=== PATIENT | male | born 1985 | race Caucasian/White ===

== ENCOUNTER 2016-05-10 13:10 | Emergency (ER) | payer BC ==
[2016-05-10] MEDS ORDERED: LORazepam INJ* 2 MG/ML 1 ML VIAL IV ONE (13:28)
[2016-05-10] MEDS: NS 0.9% 1000 ML* 2,000 ML IV ONE (13:34)
[2016-05-10 13:43] LABS: Hematocrit 42 % (42-52); Mean Corpuscular HGB Conc 34 g/dl (31-36); Mean Corpuscular Hemoglobin 30 pg (27-31); Mean Corpuscular Volume 88 fL (80-94); Mean Platelet Volume 10 um3 (7.4-10.4); Red Blood Count 4.75 10^6/ul (4.0-5.4); Red Cell Distribution Width 13 % (10.5-15); White Blood Count 4.8 10^3/ul (3.5-10.8)
--- NOTE | 2016-05-10 14:02 | RAD ---
Indication: Retro-orbital headache. Comparison: None. Technique: Noncontrast CT vertex of skull through foramen magnum. Report: The sulci, ventricles, and basal cisterns are normal for age. Godfrey matter white matter differentiation is preserved without evidence for edema. No intra or extra axial hemorrhage, mass, or fluid collection detected. Unremarkable orbital contents. Unremarkable calvarium and skull base. Unremarkable scalp. The visualized paranasal sinuses and mastoid air spaces are clear. IMPRESSION: Negative unenhanced head CT.
[2016-05-10 14:04] LABS: ALT 21 U/L (7-52); AST 20 U/L (13-39); Albumin 4.2 g/dL (3.2-5.2); Alkaline Phosphatase 63 U/L (34-104); Anion Gap 5 mmol/L (2-11); BUN/Creatinine Ratio 12.9 (8-20); Blood Urea Nitrogen 11 mg/dL (6-24); C Reactive Protein 1.47 mg/L (< 5.00); CO2 Carbon Dioxide 26 mmol/L (22-32); Calcium 9.2 mg/dL (8.6-10.3); Chloride 106 mmol/L (101-111); Creatine Kinase 84 U/L (10-223); EGFR African American 133.5 (>60); EGFR Non-African American 103.8 (>60); Globulin 2.8 g/dL (2-4); Glucose 105 mg/dL (70-100); Lipase < 10 U/L (11.0-82.0); Magnesium 2.2 mg/dL (1.9-2.7); Potassium 4.1 mmol/L (3.5-5.0); Sodium 137 mmol/L (133-145)
--- NOTE | 2016-05-10 14:10 | RAD ---
HISTORY: Left chest pain COMPARISONS: July 01, 2012 VIEWS:1: Single frontal portable view of the chest at 1:53 PM FINDINGS: LINES AND TUBES: None. CARDIOMEDIASTINAL SILHOUETTE: The cardiomediastinal silhouette is normal for portable technique. PLEURA: The costophrenic angles are sharp. No pleural abnormalities are noted. LUNG PARENCHYMA: The lungs are clear. ABDOMEN: The upper abdomen is clear. There is no subphrenic gas. BONES AND SOFT TISSUES: No bone or soft tissue abnormalities are noted. IMPRESSION: NO ACTIVE CARDIOPULMONARY DISEASE.
[2016-05-10 14:33] LABS: Urine Bilirubin Negative (Negative); Urine Glucose Negative (Negative); Urine Nitrite Negative (Negative)
[2016-05-10 14:44] LABS: TSH (Thyroid Stimulating Horm) 0.68 mcIU/mL (0.34-5.60)
--- NOTE | 2016-05-10 15:35 | ED ---
Chay Mora Aidan, scribed for Luis Lundberg MD on 05/10/16 at 1359 . Allergic Reaction/Systemic - HPI Summary HPI Summary: 31 y/o male presents to the ED via transfer from [facility] with a complaint of a possible allergic reaction to a new medication. At roughly 0830 this morning, the patient took a new medication for his bipolar disorder. At 1015, he took another new medication called Indomethacin to treat his chronic knee pain. At 1100, his symptoms began with a severe MARRERO behind the eyes and fatigue. He then developed a heavy chest pressure described as the sensation of someone sitting on his chest. He has only felt a similar chest pressure when having panic attacks. Associated symptoms include mild photophobia, some blurred vision, and episodes of mild dizziness. Currently, the patient feels fatigued and has a MARRERO. - History of Current Complaint Chief Complaint: EDAllergicReaction Time Seen by Provider: 05/10/16 13:19 Hx Obtained From: Patient Onset/Duration: Sudden Onset, Started hours ago, Still Present - MARRERO, photophobia , and fatigue still present Timing: Intermittent - episode of chest pressure, intermittent episodes of MARRERO, Lasting Hours Severity Initially: Moderate Severity Currently: Moderate - Pt currently has a moderate MARRERO Location: Discrete @ - heavy chest pressure, MARRERO above the eyes Aggravating Factor(s): Other - Possibly perscribed medication for bipolar disorder or perscribed medication for knee pain (Indomethacin) Alleviating Factor(s): Other - unknown Associated Signs And Symptoms: Positive: Chest Pain - chest "pressure", Lightheadedness - episodes of "dizziness", Other: - fatigue, photophobia, MARRERO, some blurred vision - Related Hx Possible Reaction To: Medications - Allergies/Home Medications Allergies/Adverse Reactions: Allergies Allergy/AdvReac Type Severity Reaction Status Date / Time No Known Allergies Allergy Verified 01/14/16 09:56 PMH/Surg Hx/FS Hx/Imm Hx Endocrine/Hematology History: Denies: Hx Diabetes, Hx Thyroid Disease Cardiovascular History: Denies: Hx Congestive Heart Failure, Hx Deep Vein Thrombosis, Hx Hypertension , Hx Myocardial Infarction, Hx Pacemaker/ICD Respiratory History: Denies: Hx Asthma, Hx Chronic Obstructive Pulmonary Disease (COPD), Hx Lung Cancer, Hx Pneumonia, Hx Pulmonary Embolism GI History: Reports: Hx Irritable Bowel - CHRONIC, RELATES IT TO ANXIETY, NO MEDS Denies: Hx Gall Bladder Disease, Hx Gastrointestinal Bleed, Hx Ulcer, Hx Urosepsis History: Reports: Other Problems/Disorders - 2007 RIGHT ORCHIECTOMY R/T CA Denies: Hx Kidney Stones, Hx Renal Disease Musculoskeletal History: Reports: Hx Arthritis - CHRONIC INFLAMMATORY ARTHRITIS Sensory History: Denies: Hx Contacts or Glasses, Hx Hearing Aid Opthamlomology History: Denies: Hx Contacts or Glasses Neurological History: Denies: Hx Dementia, Hx Migraine, Hx Seizures, Hx Transient Ischemic Attacks (TIA) Psychiatric History: Reports: Hx Anxiety, Hx Depression - ON DAILY MEDS, Hx Panic Disorder Denies: Hx Schizophrenia, Hx Bipolar Disorder - Cancer History Cancer Type, 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 2013 TUBES IN EAR ( SILICON VERIFIED BY RN AT DR CANCINO OFFICE)HAVE FALLEN OUT SINCE THEN ,. 2011 RT CARPAL TUNNEL RELEASE WITH TRIGGER FINGER RELEASE [facility]. 2013 RT FOOT SURGERY [facility] NE[facility]OMA BETWEEN 2ND AND 3RD DIGITS. [facility] [place]. 10/2015 LEFT SHOULDER TAN Hx Anesthesia Reactions: No Infectious Disease History: No Infectious Disease History: Reports: Hx Shingles Denies: Hx Clostridium Difficile, Hx Hepatitis, Hx Human Immunodeficiency Virus (HIV), Hx of Known/Suspected MRSA, Traveled Outside the [place] in Last 30 Days - Family History Known Family History: Positive: Cardiac Disease Negative: Hypertension, Diabetes - Social History Occupation: Employed Full-time Lives: With Family Alcohol Use: Weekly Alcohol Amount: 1 DRINK/WEEK Substance Use Type: Reports: Marijuana Substance Use Comment - Amount & Last Used: PT WILL REFRAIN FOR 1 WEEK PREOP Smoking Status (MU): Never Smoked Tobacco Have You Smoked in the Last Year: No Review of Systems Constitutional: Other - dizziness Positive: Fatigue. Negative: Fever, Chills, Skin Diaphoresis Positive: Photophobia, Blurred Vision. Negative: Diplopia, Drainage, Erythema ENT: Negative Positive: Chest Pain - chest "pressure". Negative: Palpitations Respiratory: Negative Gastrointestinal: Negative Genitourinary: Negative Musculoskeletal: Negative Skin: Negative Positive: Headache Psychological: Normal All Other Systems Reviewed And Are Negative: Yes Physical Exam Triage Information Reviewed: Yes Vital Signs On Initial Exam: Initial Vitals Temp Pulse Resp BP Pulse Ox 98.4 F 58 18 129/80 95 05/10/16 13:10 05/10/16 13:10 05/10/16 13:10 05/10/16 13:10 05/10/16 13:10 Vital Signs Reviewed: Yes Appearance: Positive: Well-Appearing, No Pain Distress Skin: Positive: Warm, Skin Color Reflects Adequate Perfusion, Dry Head/Face: Positive: Normal Head/Face Inspection Eyes: Positive: EOMI, GINO ENT: Positive: Normal ENT inspection Neck: Positive: Supple, Nontender Respiratory/Lung Sounds: Positive: Clear to Auscultation, Breath Sounds Present Cardiovascular: Positive: RRR Abdomen Description: Positive: Nontender, Soft Bowel Sounds: Positive: Present Musculoskeletal: Positive: Normal, Strength/ROM Intact Neurological: Positive: Normal, Sensory/Motor Intact, Alert, Oriented to Person Place, Time, CN Intact II-III Psychiatric: Positive: Normal, Anxious - [place] Coma Scale Coma Scale Total: 15 Diagnostics - Vital Signs Vital Signs Temp Pulse Resp BP Pulse Ox 05/10/16 13:34 18 05/10/16 13:15 59 94 05/10/16 13:10 98.4 F 58 18 129/80 95 - Laboratory Lab Results: Lab Results 05/10/16 Range/Units 13:35 WBC 4.8 (3.5-10.8) 10^3/ul RBC 4.75 (4.0-5.4) 10^6/ul Hgb 14.0 (14.0-18.0) g/dl Hct 42 (42-52) % MCV 88 (80-94) fL MCH 30 (27-31) pg MCHC 34 (31-36) g/dl RDW 13 (10.5-15) % Plt Count 144 L (150-450) 10^3/ul MPV 10 (7.4-10.4) um3 Neut % (Auto) 53.0 (38-83) % Lymph % (Auto) 37.0 (25-47) % Morrow % (Auto) 8.4 (1-9) % Eos % (Auto) 1.1 (0-6) % Baso % (Auto) 0.5 (0-2) % Absolute Neuts (auto) 2.6 (1.5-7.7) 10^3/ul Absolute Lymphs (auto) 1.8 (1.0-4.8) 10^3/ul Absolute Monos (auto) 0.4 (0-0.8) 10^3/ul Absolute Eos (auto) 0.1 (0-0.6) 10^3/ul Absolute Basos (auto) 0 (0-0.2) 10^3/ul Absolute Nucleated RBC 0 10^3/ul Nucleated RBC % 0 Result Diagrams: 05/10/16 13:35 05/10/16 13:35 Lab Statement: Any lab studies that have been ordered have been reviewed, and results considered in the medical decision making process. - Radiology CHEST XR Xray Interpretation: No Acute Changes - IMPRESSION: NO ACTIVE CARDIOPULMONARY DISEASE Radiology Interpretation Completed By: Radiologist - CT BRAIN CT CT Interpretation: No Acute Changes - IMPRESSION: NEGATIVE UNENHANCED HEAD CT CT Interpretation Completed By: Radiologist - EKG EKG 1359 Cardiac Rate: Bradycardia - 51 BPM EKG Rhythm: Sinus Bradycardia EKG Interpretation: SINUS BRADYCHARDIA, NOTMAL ST, NO ECT Allergic Reaction Course/Dx - Course Assessment/Plan: IMPROVED IN ED. DISCUSSED RESULTS WITH PATIENT. DISCHARGE HOME STABLE. - Diagnoses Provider Diagnoses: Chest pain, Headache Discharge - Discharge Plan Condition: Stable Disposition: HOME Patient Education Materials: Chest Pain (ED), General Headache (ED) Referrals: Yogi Morales DO [Primary Care Provider] - Additional Instructions: FOLLOW UP WITH YOUR DOCTOR. RETURN TO THE EMERGENCY DEPARTMENT FOR ANY WORSENING OF YOUR CONDITION; PAIN, SHORTNESS OF BREATH, YOU FEEL ILL, WEAKNESS, NUMBNESS OR QUESTIONS OR CONCERNS. The documentation as recorded by the Chay piper Aidan accurately reflects the service I personally performed and the decisions made by me, Luis Lundberg MD.
[2016-05-10 15:47] VITALS: BP 118/70
== END 2016-05-10 15:46 | disposition home or self-care (01) ==
LOC: ED 13:10
DX: R07.9 Chest pain, unspecified (principal); R51 Headache; R42 Dizziness and giddiness; R53.83 Other fatigue; H53.149 Visual discomfort, unspecified; H53.8 Other visual disturbances
CPT/HCPCS: 36415; 70450; 71010; 80053; 81003; 82550; 82553; 83605; 83690; 83735; 84443; 84484; 85025; 85379; 85610; 85730; 86140; 93005; 99283; J2060

== ENCOUNTER 2016-07-07 08:20 | Emergency (ER) | payer BC ==
[2016-07-07 08:55] VITALS: BP 106/61
--- NOTE | 2016-07-07 09:28 | UC ---
Throat Pain/Nasal Kayden HPI - HPI Summary HPI Summary: Sore throat and fever for two days. no cough. Left gland swelling of the neck. prior ear tubes. - History of Current Complaint Chief Complaint: UCRespiratory Stated Complaint: EARS SORE THROAT Time Seen by Provider: 07/07/16 09:10 Hx Obtained From: Patient Onset/Duration: Gradual Onset, Lasting Days Severity: Moderate Cough: None Associated Signs & Symptoms: Positive: Dysphagia, Fever. Negative: FB Sensation , Drooling, Wheezing, Hoarseness, Sinus Discomfort, Nasal Discharge, Vomiting, Rash - Epiglottits Risk Factors Epiglottis Risk Factors: Negative - Allergies/Home Medications Allergies/Adverse Reactions: Allergies Allergy/AdvReac Type Severity Reaction Status Date / Time No Known Allergies Allergy Verified 07/07/16 08:55 Home Medications: Home Medications Bipolar Disorder Dmed 100 mg PO DAILY 07/07/16 [History Confirmed 07/07/16] Citalopram TAB* [CeleXA TAB*] 20 mg PO BEDTIME 07/07/16 [History Confirmed 07/07] PMH/Surg Hx/FS Hx/Imm Hx Endocrine History Of: Denies: Diabetes, Thyroid Disease, Hyperthyroidism, Hypothyroidism, Dyslipidemia Cardiovascular History Of: Denies: Cardiac Disorders, Hypertension, Pacemaker/ICD, Myocardial Infarction , Congestive Heart Failure, Atrial Fibrillation, Deep Vein Thrombosis, Bleeding Disorders Respiratory History Of: Denies: COPD, Asthma, Bronchitis, Pneumonia, Pulmonary Embolism GI/ History Of: Denies: Gastroesophageal Reflux, Ulcer, Gastrointestinal Bleed, Gall Bladder Disease, Kidney Stones, Diverticulitis, Renal Disease, Urosepsis Neurological History Of: Denies: TIA, CVA, Dementia, Seizures, Migraine Psychological History Of: Reports: Anxiety, Depression - ON DAILY MEDS, Post Traumatic Stress Disorder Denies: Bipolar Disorder, Schizophrenia Cancer History Of: Denies: Lung Cancer, Colorectal Cancer, Breast Cancer, Prostate Cancer, Cervical Cancer - Surgical History Surgical History: Yes Surgery Procedure, Year, and Place: 2007 Right orchiotomy. 2013 TUBES IN EAR ( SIL[facility] VERIFIED BY RN AT DR CANCINO OFFICE)HAVE FALLEN OUT SINCE THEN ,. 2011 RT CARPAL TUNNEL RELEASE WITH TRIGGER FINGER RELEASE [facility]. 2013 RT FOOT SURGERY [facility] NE[facility]OMA BETWEEN 2ND AND 3RD DIGITS. [facility]. 10/2015 LEFT SHOULDER TAN. right knee 01/2016 - Family History Known Family History: Positive: Cardiac Disease Negative: Hypertension, Diabetes - Social History Alcohol Use: None Alcohol Amount: 1 DRINK/WEEK Substance Use Type: None, Marijuana Substance Use Comment - Amount & Last Used: PT WILL REFRAIN FOR 1 WEEK PREOP Smoking Status (MU): Never Smoked Tobacco Have You Smoked in the Last Year: No - Immunization History Most Recent Influenza Vaccination: Review of Systems All Other Systems Reviewed And Are Negative: Yes Physical Exam Triage Information Reviewed: Yes Appearance: Well-Appearing, No Pain Distress, Well-Nourished Vital Signs: Initial Vital Signs Temp 98.3 F 07/07/16 08:48 Pulse 70 07/07/16 08:48 Resp 18 07/07/16 08:48 BP 106/61 07/07/16 08:48 Pulse Ox 97 07/07/16 08:48 Vital Signs Reviewed: Yes Eyes: Positive: Conjunctiva Clear. Negative: Conjunctiva Inflamed ENT: Positive: Pharyngeal erythema, Tonsillar swelling, Tonsillar exudate. Negative: Pharynx normal, Nasal congestion, Nasal drainage, TMs normal, TM bulging, TM dull, TM red, Trismus, Muffled/hoarse voice Neck exam: Normal Neck: Positive: Supple, Tenderness @, Enlarged Nodes @ - Left submandibular tenderness and swelling. Respiratory Exam: Normal Respiratory: Positive: Chest non-tender, Lungs clear, Normal breath sounds, No respiratory distress, No accessory muscle use. Negative: Respiratory distress, Decreased breath sounds, Accessory muscle use, Crackles, Rhonchi, Stridor, Wheezing Cardiovascular Exam: Normal Cardiovascular: Positive: RRR, No Murmur, Pulses Normal, Brisk Capillary Refill Abdominal Exam: Normal Abdomen Description: Positive: Nontender, No Organomegaly, Soft Musculoskeletal Exam: Normal Musculoskeletal: Positive: Strength Intact, ROM Intact, No Edema Neurological Exam: Normal Neurological: Positive: Alert, Muscle Tone Normal. Negative: Fatigued Psychological Exam: Normal Skin Exam: Normal Skin: Negative: rashes Throat Pain/Nasal Course/Dx - Course Course Of Treatment: Sore throat, fever, exudate and adenopathy with abscence of cough. We will start antibiotics. - Differential Dx/Diagnosis Differential Diagnosis/HQI/PQRI: Epiglottitis, Foreign Body, Influenza, Laryngitis, Luke's Angina, Mononucleosis, Otitis Media, Peritonsillar Abscess , Pharyngitis, Sinusitis, Tonsillitis, URI Provider Diagnoses: strep pharyngitis. Discharge - Discharge Plan Condition: Fair Disposition: HOME Prescriptions: Amoxicillin/Clavulanate TAB* [Augmentin TAB 875*] 875 mg PO BID #20 tab Patient Education Materials: Strep Throat (ED) Referrals: Yogi Morales DO [Primary Care Provider] -
== END 2016-07-07 09:37 | disposition home or self-care (01) ==
LOC: UCCORT 08:20
DX: J02.0 Streptococcal pharyngitis (principal)
CPT/HCPCS: 99212; G0463

== ENCOUNTER 2016-11-24 19:35 | Emergency (ER) | payer BC ==
[2016-11-24 19:47] VITALS: BP 126/77
[2016-11-24] MEDS ORDERED: predniSONE TAB* 20 MG PO ONE (20:18)
--- NOTE | 2016-11-24 20:29 | UC ---
Throat Pain/Nasal Kayden HPI - HPI Summary HPI Summary: 31 yo male with a three week hx of his nose "running like a faucet" ear full and popping no fever no myalgias no dental pain HE REFUSES TO USE NASAL SPRAY - History of Current Complaint Chief Complaint: UCRespiratory Stated Complaint: SINUS PRESSURE Time Seen by Provider: 11/24/16 20:04 Hx Obtained From: Patient Onset/Duration: Sudden Onset Severity: Moderate Pain Intensity: 3 Pain Scale Used: Adult Non Verbal Cough: Nonproductive Associated Signs & Symptoms: Positive: Sinus Discomfort, Nasal Discharge - Allergies/Home Medications Allergies/Adverse Reactions: Allergies Allergy/AdvReac Type Severity Reaction Status Date / Time No Known Allergies Allergy Verified 11/24/16 19:48 PMH/Surg Hx/FS Hx/Imm Hx Previously Healthy: Yes - Surgical History Surgical History: Yes Surgery Procedure, Year, and Place: 2007 Right orchiotomy. 2013 TUBES IN EAR ( SILICON VERIFIED BY RN AT DR CANCINO OFFICE)HAVE FALLEN OUT SINCE THEN ,. 2011 RT CARPAL TUNNEL RELEASE WITH TRIGGER FINGER RELEASE [facility] [place]. 2013 RT FOOT SURGERY [facility]OMA BETWEEN 2ND AND 3RD DIGITS. [facility] [place]. 10/2015 LEFT SHOULDER [place]. right knee 01/2016 - Family History Known Family History: Positive: Cardiac Disease Negative: Hypertension, Diabetes - Social History Alcohol Use: None Alcohol Amount: 1 DRINK/WEEK Substance Use Type: None, Marijuana Substance Use Comment - Amount & Last Used: PT WILL REFRAIN FOR 1 WEEK PREOP Smoking Status (MU): Never Smoked Tobacco Have You Smoked in the Last Year: No - Immunization History Most Recent Influenza Vaccination: Review of Systems Constitutional: Negative Skin: Negative Eyes: Negative ENT: Ear Ache - pressure, Nasal Discharge Respiratory: Negative Cardiovascular: Negative Gastrointestinal: Negative Genitourinary: Negative Motor: Negative Neurovascular: Negative Musculoskeletal: Negative Neurological: Negative Psychological: Negative All Other Systems Reviewed And Are Negative: Yes Physical Exam Triage Information Reviewed: Yes Appearance: Well-Appearing, No Pain Distress, Well-Nourished Vital Signs: Initial Vital Signs Temp 98.7 F 11/24/16 19:44 Pulse 71 11/24/16 19:44 Resp 16 11/24/16 19:44 BP 126/77 11/24/16 19:44 Pulse Ox 100 11/24/16 19:44 Eyes: Positive: Conjunctiva Clear ENT: Positive: Hearing grossly normal, Nasal congestion, Nasal drainage, TM bulging. Negative: Tonsillar swelling, Tonsillar exudate, Trismus, Muffled/ hoarse voice Neck: Positive: Supple, Nontender, No Lymphadenopathy Respiratory: Positive: Lungs clear, Normal breath sounds, No respiratory distress, No accessory muscle use Cardiovascular: Positive: RRR, No Murmur, Pulses Normal Musculoskeletal: Positive: ROM Intact, No Edema Neurological: Positive: Alert, Muscle Tone Normal Psychological Exam: Normal Skin Exam: Normal Throat Pain/Nasal Course/Dx - Differential Dx/Diagnosis Provider Diagnoses: seasonal allergic rhinitis. bilateral serous otitis media Discharge - Discharge Plan Condition: Stable Disposition: HOME Prescriptions: Prednisone [Deltasone] 20 - 40 mg PO DAILY #13 tab Patient Education Materials: Allergic Rhinitis (ED), Serous Otitis Media (ED) Referrals: Mark French MD [Medical Doctor] - Yogi Morales DO [Primary Care Provider] - If Needed Additional Instructions: continue zyrtec recheck for worsening symptoms I suggest you follow up with your MD or Asthma and Allergy
== END 2016-11-24 20:24 | disposition home or self-care (01) ==
LOC: UCCORT 19:35
DX: J30.2 Other seasonal allergic rhinitis (principal); H65.93 Unspecified nonsuppurative otitis media, bilateral
CPT/HCPCS: 99212; G0463; J7512

== ENCOUNTER 2017-06-15 08:17 | Emergency (ER) | payer BC ==
[2017-06-15 08:33] VITALS: BP 103/66
--- NOTE | 2017-06-15 08:47 | UC ---
UC General HPI - HPI Summary HPI Summary: Left anterolateral rib pain and tenderness after leaning over a garbage can about a week ago. It hurts more with sneezing and taking a deep breath. No known lung disease. No sob. - History of Current Complaint Chief Complaint: UCGeneralIllness Stated Complaint: LEFT RIB INJURY Time Seen by Provider: 06/15/17 08:37 Hx Obtained From: Patient Onset/Duration: Sudden Onset, Lasting Days Timing: Constant Onset Severity: Moderate Current Severity: Severe Pain Intensity: 4 Associated Signs & Symptoms: Positive: Trauma. Negative: Decreased Oral Intake , Fever, Hemoptysis, SOB, Vomiting, Wheezing, Weakness - Allergy/Home Medications Allergies/Adverse Reactions: Allergies Allergy/AdvReac Type Severity Reaction Status Date / Time No Known Allergies Allergy Verified 11/24/16 19:48 Home Medications: Home Medications Medical Marijuana 06/15/17 [History] Oxycodone HCl/Acetaminophen [Percocet 7.5-325 mg Tablet] 06/15/17 [History] lamoTRIgine [Lamictal] 06/15/17 [History] PMH/Surg Hx/FS Hx/Imm Hx Previously Healthy: No - Mental health disease. - Surgical History Surgical History: Yes Surgery Procedure, Year, and Place: 2007 Right orchiotomy. TRIGGER FINGER. 2013 TUBES IN EAR (SILICON VERIFIED BY RN AT DR CANCINO OFFICE)HAVE FALLEN OUT SINCE THEN ,. 2011 RT CARPAL TUNNEL RELEASE WITH TRIGGER FINGER RELEASE [facility]. 2013 RT FOOT SURGERY [facility] NE[facility]OMA BETWEEN 2ND AND 3RD DIGITS. [facility]. 10/2015 LEFT SHOULDER TAN. right knee 01/2016 - Family History Known Family History: Positive: Cardiac Disease Negative: Hypertension, Diabetes - Social History Occupation: Employed Full-time Lives: With Family Alcohol Use: Occasionally Alcohol Amount: 1 DRINK/WEEK Substance Use Type: Excessive Caffeine, Marijuana Substance Use Comment - Amount & Last Used: [employer]ICAL MARIJUANA Smoking Status (MU): Never Smoked Tobacco Have You Smoked in the Last Year: No - Immunization History Most Recent Influenza Vaccination: Review of Systems Cardiovascular: Chest Pain All Other Systems Reviewed And Are Negative: Yes Physical Exam Triage Information Reviewed: Yes Appearance: Well-Appearing - No pain until we palpate the area., No Pain Distress, Well-Nourished Vital Signs: Initial Vital Signs Temp 98.2 F 06/15/17 08:21 Pulse 87 06/15/17 08:21 Resp 16 06/15/17 08:21 BP 103/66 06/15/17 08:21 Pulse Ox 100 06/15/17 08:21 Eyes: Positive: Conjunctiva Clear ENT: Positive: Normal ENT inspection Neck: Positive: Supple, Nontender, No Lymphadenopathy Respiratory: Positive: Lungs clear, Normal breath sounds, No respiratory distress, No accessory muscle use. Negative: Respiratory distress, Crackles, Rhonchi, Stridor, Wheezing Cardiovascular: Positive: RRR, No Murmur, Pulses Normal Abdomen Description: Positive: Soft. Negative: Distended, Guarding Bowel Sounds: Positive: Present Musculoskeletal: Positive: Other: - Left lower lateral rib tenderness most at the costochondral junction of the 11th rib or so. There is less pain laterally. Neurological: Positive: Alert, Muscle Tone Normal. Negative: Fatigued Psychological: Positive: Age Appropriate Behavior Skin Exam: Normal Diagnostics - Radiology No standard instances Xray Interpretation: No Acute Changes Radiology Interpretation Completed By: Radiologist Course/Dx - Course Course Of Treatment: Most likely a sprain of the costochondral junction of lower rib. - Differential Dx - Multi-Symptom Provider Diagnoses: rib sprain Discharge - Discharge Plan Condition: Good Disposition: HOME Patient Education Materials: Sprain (ED) Referrals: Yogi Morales DO [Primary Care Provider] - If Needed
--- NOTE | 2017-06-15 09:00 | RAD ---
Indication: Left lower lateral rib pain. 3 views of left ribs as well as dual energy PA views of the chest are reviewed. No fracture is identified. No pneumothorax is noted. Lung hartman are clear. IMPRESSION: No definite fracture is identified. No pneumothorax is noted.
== END 2017-06-15 09:10 | disposition home or self-care (01) ==
LOC: UCCORT 08:17
DX: S23.41XA Sprain of ribs, initial encounter (principal); X58.XXXA Exposure to other specified factors, initial encounter; Y92.9 Unspecified place or not applicable
CPT/HCPCS: 99211; G0463

== ENCOUNTER 2017-11-25 20:04 | Emergency (ER) | payer BC, OTHER ==
[2017-11-25] MEDS ORDERED: Diazepam TAB(*) 5 MG PO ONE (21:18)
[2017-11-25] MEDS ORDERED: Ketorolac INJ* 30 MG/ML 1 ML VIAL IV PUSH ONE (21:18)
[2017-11-25 22:04] LABS: ABS Basophils 0 10^3/ul (0-0.2); ABS Eosinophils 0.2 10^3/ul (0-0.6); ABS Lymphocytes 1.3 10^3/ul (1.0-4.8); ABS Monocytes 0.8 10^3/ul (0-0.8); ABS Neutrophils 6.6 10^3/ul (1.5-7.7); ABS Nucleated RBC 0 10^3/ul; Eosinophil % 1.8 % (0-6); Hematocrit 40 % (42-52); Hemoglobin 13.8 g/dl (14.0-18.0); Mean Corpuscular HGB Conc 34 g/dl (31-36); Mean Corpuscular Hemoglobin 30 pg (27-31); Mean Corpuscular Volume 88 fL (80-94); Mean Platelet Volume 9.4 um3 (7.4-10.4); Nucleated Red Blood Cells % 0; Platelet Count 151 10^3/ul (150-450); Red Blood Count 4.54 10^6/ul (4.00-5.40); Red Cell Distribution Width 13 % (10.5-15); White Blood Count 8.8 10^3/ul (3.5-10.8)
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
[2017-11-25 22:10] LABS: INR 0.98 (0.77-1.02)
[2017-11-25 22:19] LABS: EGFR Non-African American 100.4 (>60)
[2017-11-26] MEDS ORDERED: Iodixanol* (CONTRAST) 320 MG/ML 100 ML SDV IV ONE (00:23)
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
[2017-11-26 06:19] VITALS: BP 93/61
== END 2017-11-26 06:15 | disposition home or self-care (01) ==
LOC: ED 20:04
DX: M25.552 Pain in left hip (principal); R51 Headache; R10.9 Unspecified abdominal pain; V49.9XXA Car occupant (driver) (passenger) injured in unspecified traffic accident, initial encounter; Y92.9 Unspecified place or not applicable
CPT/HCPCS: 36415; 74177; 80053; 85025; 85610; 85730; 96374; 96375; 99282; A9270-GY; J1885; Q9967

== ENCOUNTER → 2019-02-26 11:58 | Day surgery (SDC) | payer BC ==
[~2019-02-26 11:58] MED LIST: Buffered Lidocaine 1% SYRIN* 1 ML/SYRINGE INTRADERM ONE; Bupivacaine 0.25% SDV PF* 10 ML VIAL INJ ONE; Dexamethasone IV* 4 MG/ML 1 ML (4 MG) IV SLOW PU ONE; Dexamethasone IV* 4 MG/ML 1 ML (4 MG) ONE; DiMENhydriNATE IV* 50 MG/ML VIAL IV PUSH PRN; Famotidine IV* 10 MG/ML 2 ML (20 mg) IV ONE; Famotidine IV* 10 MG/ML 2 ML (20 mg) ONE; HYDROmorphone INJ1* 1 MG/ML SYRINGE IV PRN; KETAMINE HCL* 50 MG/ML 10 ML VIAL ONE; Ketorolac INJ* 30 MG/ML 1 ML VIAL ONE; Lactated Ringers 1000 ML Bag* 1,000 ML IV SCH; Lidocaine 2% PF * 5 ML VIAL ONE; Midazolam* 1 MG/ML 2 ML VIAL (2 MG) ONE; Naloxone* 0.4 MG/ML 1 ML VIAL IV PRN; Ondansetron INJ* 2 MG/ML VIAL ONE; Propofol* 10 MG/ML 20 ML BTL ONE; Sodium Citrate/Citric Acid* 15 ML UDC PO ONE; ceFAZolin 2 GM in NS PREMIX(*) 2 GM/100 ML BAG IVPB ONE; fentaNYL* 50 MCG/ML 2 ML VIAL (100 MCG VIAL) ONE; oxyCODONE/Acetamin 5/325 MG* TAB ONE
[2019-02-26] MEDS: fentaNYL* 50 MCG/ML 2 ML VIAL (100 MCG VIAL) IV PRN ×4 (18:05→18:35)
[2019-02-26 19:35] VITALS: BP 116/85
--- NOTE | 2019-02-27 04:25 | OP ---
DATE OF OPERATION: 02/26/19 - [facility] DATE OF : 81 SURGEON: Santiago Altamirano MD FILM SPOOLER: MICHELE Turpin. An assistant analyst was needed for the entirety of the procedure to aid in positioning of the arm and retraction. ANESTHESIOLOGIST: Dr. Parada. ANESTHESIA: General. PRE-OP DIAGNOSIS: Right ring finger metacarpophalangeal joint radial collateral ligament insufficiency. POST-OP DIAGNOSIS: Right ring finger metacarpophalangeal joint radial collateral ligament insufficiency. OPERATIVE PROCEDURE: Right ring finger metacarpophalangeal joint radial collateral ligament repair with Arthrex SutureTape and palmaris longus tendon graft. 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 I believe the injury happened back in October. It is very symptomatic. 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 We talked about treatment options, risks, and benefits. He wanted to proceed with surgery. ESTIMATED BLOOD LOSS: 2 mL. COMPLICATIONS: The initial suture anchor that I placed malfunctioned necessitating additional repair with the Arthrex SutureTape, utilizes an internal brace augmented with a palmaris longus tendon graft. FINDINGS: See above and below. DESCRIPTION OF PROCEDURE: Mr. Iraheta was seen in the preoperative holding area. The correct site, side, and procedure were identified. We came back to the operating room. The arm was prepped and draped in the usual fashion and a time-out was performed. The arm was exsanguinated with the Esmarch and the tourniquet was inflated to 250 mmHg. I made a curvilinear incision along the radial aspect of the metacarpophalangeal joint. Dissection was carried down through the subcutaneous tissue. Full-thickness flaps were raised off the extensor tendon. I then incised the extensor tendon right along the radial sagittal band. The tendon was retracted out of the way. The radial collateral ligament was exposed. When I tried to mobilize it and release it, it had torn off the base of the proximal phalanx. It was noted to be scarred up near its origin at the metacarpal head. I tried to release and elongate it. Ultimately, I felt I had enough length, and so I placed an Arthrex microsuture anchor in the appropriate location in the base of the proximal phalanx. The suture then just tore through that degenerative collagen tissue. I went ahead and tried to remove the microsuture anchor and it simply would not remove, it just went deeper into the bone, and so, I had to just leave it in the bone. Since there was enough good local tissue for repair, I went ahead and placed an Arthrex 2.5 mm SwiveLock in the metacarpal head. An additional SwiveLock was placed in the base of the proximal phalanx. In the metacarpal head, it was a 2.5 mm SwiveLock, and in the proximal phalanx, ended up being at 3.5 mm SwiveLock. The Arthrex SutureTape was incorporated with each SwiveLock with good tension such that we were able to restore some stability on that radial collateral ligament. I decided I want to augment that internal brace with some actual collagen tissue , and so I placed a DePuy mini-Mitek suture anchor just distal to where I had placed my SwiveLock in the base of the proximal phalanx. I then placed two DePuy mini-Mitek suture anchors in the metacarpal head. I harvested a segment of the palmaris longus tendon by making an 1 cm incision just over the distal palmaris longus tendon just proximal to the wrist flexion crease. The tendon was released there. I then made a second 1 cm incision proximally and then pulled the tendon up into that wound, where it was released there. I then folded the tendon over and half and sewed it down the bone with the 2-0 Ethibond suture coming off the DePuy mini-Mitek suture anchor. This was first sewed down on the base of the proximal phalanx. I then tensioned and sewed it down to the metacarpal head with the sutures there. At this point, I thought I had very nice stability. I did go ahead and irrigated out the wound. The radial sagittal band was repaired with, I believe , 4- 0 Prolene suture. The skin was closed with 4-0 nylon suture. 0.25% Marcaine was infiltrated about the operative area. The ring finger was taped to the middle finger loosely and then he was placed in an ulnar gutter splint leaving the index finger and thumb free. The tourniquet was deflated and he was taken to the recovery room in stable condition. [id number]/[facility] #: [id number] LACEY
== END | disposition home or self-care (01) ==
LOC: OR 11:58
PROVIDERS: ATTEND Orthopaedic Surgery Hand Surgery
DX: S63.654D Sprain of metacarpophalangeal joint of right ring finger, subsequent encounter (principal); X58.XXXD Exposure to other specified factors, subsequent encounter; Y92.9 Unspecified place or not applicable; F41.8 Other specified anxiety disorders; Z85.47 Personal history of malignant neoplasm of testis
CPT/HCPCS: 76000; A9270-GY; C1713; J0690; J1100; J1885; J2250; J2405; J2704; J3010; J3490